=== PATIENT | female | born 1950 | race Caucasian/White ===

== ENCOUNTER 2020-04-10 11:45 | Outpatient (NON) | payer MEDICARE, SELFPAY ==
[2020-04-11 01:18] LABS: SARS-CoV-2 RNA PCR Negative
== END 2020-04-10 11:46 ==
PROVIDERS: Visit Provider Internal Medicine
DX: Z20.828 Contact with and (suspected) exposure to other viral communicable diseases (principal)
CPT/HCPCS: 87635; C9803; U0003

== ENCOUNTER 2021-02-27 15:27 | Emergency (ER) | payer MEDICARE, SELFPAY ==
--- NOTE | ~2021-02-27 | XR_ITS ---
XR chest 1V portable DATE: 02/27/2021 17:14 INDICATION: Fever, shortness of breath, nausea TECHNIQUE: Portable upright AP chest on 02/27/2021 at 1708 hours COMPARISON: 02/24/2006 PA and lateral chest FINDINGS: Normal heart size. Possible coronary artery stent; recommend clinical correlation. No hilar or mediastinal enlargement. No pulmonary infiltrate or consolidation, pleural effusion or pulmonary vascular congestion or pneumo thorax. Diffuse osteopenia. Degenerative spurring and scoliosis of the thoracolumbar spine. IMPRESSION: No active cardiopulmonary disease Diffuse osteopenia Reviewed, dictated and finalized at location A.
[2021-02-27 15:28] VITALS: BP 153/71; PULSE 101; RESP 18; TEMP 38.4; O2SAT 97
--- NOTE | 2021-02-27 17:12 | PC.NURSE ---
Patient refusing all labs, urine or any testing except the COVID test. Patient reports she wants nothing more done to her other than the COVID test.
--- NOTE | 2021-02-27 17:30 | PC.NURSE ---
patient's asked to leave due to patient's getting a COVID test, patient still refusing all other testing or vital signs. patient states I want a COVID test and then I am going home, I don't feel good.
--- NOTE | 2021-02-27 17:57 | ED.URI ---
HPI - URI/Sore Throat General Chief Complaint: Headache Stated Complaint: headache, fever Time Seen by Provider: 02/27/21 16:58 Source: patient Mode of arrival: ambulatory Limitations: no limitations History of Present Illness HPI Narrative: This is a 70 year old female that presents to the ER for cold symptoms present over the last couple of days. Reports fever, sinus pain, congestion, cough and nausea. She has been Covid vaccinated with [employer] earlier this year. Denies chest pain, shortness of breath, abdominal pain, vomiting, or dysuria. Related Data Home Medications Medication Instructions Recorded Confirmed amlodipine 02/27/21 atenolol 02/27/21 atorvastatin 02/27/21 ciprofloxacin-dexamethasone drp 02/27/21 conjugated estrogens [Premarin] 02/27/21 montelukast mg 02/27/21 sertraline mg 02/27/21 02/27/21 Allergies Allergy/AdvReac Type Severity Reaction Status Date / Time codeine Allergy Intermediate VOMITTING Verified 07/28/15 08:17 aspirin AdvReac Unknown Verified 02/27/21 15:33 Review of Systems Review of Systems: CONSTITUTIONAL: Reports fever, chills ENT: Reports rhinorrhea, congestion, sore throat CARDIOVASCULAR: Denies chest pain RESPIRATORY: Denies dyspnea. GASTROINTESTINAL: Denies abdominal pain GENITOURINARY: Denies dysuria NEUROLOGIC: Reports headache. Denies numbness, or weakness. All systems reviewed & are unremarkable except as noted in HPI and below PMFSH Past Medical History Medical History (Updated 02/27/21 @ 18:04 by Beena Maldonado PA-C) History of hyperlipidemia History of hypertension Social History Social History (Updated 02/27/21 @ 18:00 by Beena Maldonado PA-C) Substance use: never Exam Narrative: GENERAL: Well-appearing, well-nourished, and in no acute distress. HEAD: Normocephalic, atraumatic. EYES: EOMI. ENT: Nares clear, no rhinorrhea or epistaxis. Mucous membranes moist. Oropharynx without tonsillar hypertrophy exudate or other lesions. Bilateral TMs pearly lieberman non-bulging. Left TM with myringotomy tube present. Tender to palpation of the maxillary sinuses bilaterally NECK: Supple. No adenopathy or masses. CHEST: Clear to auscultation. No respiratory distress. No wheezes rales or rhonchi HEART: Regular rate and rhythm. No murmur heard. Normal peripheral pulses. ABDOMEN: Soft, nontender, nondistended, normal active bowel sounds. EXTREMITIES: Normal range of motion. No edema. SKIN: Warm, dry, no rash. NEURO: No focal deficits. Alert and oriented x3. Cranial nerves II through XII grossly intact PSYCH: Normal mood and affect Course Vital Signs Vital signs: Vital Signs Temperature 101.2 F H 02/27/21 15:28 Pulse Rate 101 H 02/27/21 15:28 Respiratory Rate 18 02/27/21 15:28 Blood Pressure 153/71 H 02/27/21 15:28 Pulse Oximetry 97 02/27/21 15:28 Temperature 101.2 F H 02/27/21 15:28 Pulse Rate 101 H 02/27/21 15:28 Respiratory Rate 18 02/27/21 15:28 Blood Pressure 153/71 H 02/27/21 15:28 Pulse Oximetry 97 02/27/21 15:28 MDM - URI/Sore Throat MDM Narrative Medical decision making narrative: Patient presents to the emergency department for cold symptoms present over the last couple of days. Febrile upon arrival, she is nontoxic-appearing. She refused any antipyretics in the ED. Oxygen saturation has remained normal on room air. She denies any chest pain or shortness of breath. Chest x-ray without acute cardiopulmonary abnormality. SARS-CoV-2 was sent. She refused any further laboratory evaluation. Patient will be treated for acute bacterial sinusitis pending Covid swab. She was instructed to have close follow-up with her primary doctor. She was given warnings to return to the ER Lab Data Attestation: I reviewed the patient's lab results. Labs: Lab Results 02/27/21 Range/Units 17:13 SARS-CoV-2 RNA (RT-PCR) Pending Imaging Data Radiologist's impression: ITS Impressions Chest X-Ray
[2021-03-01 19:00] LABS: SARS-CoV-2 RNA PCR Negative
== END 2021-02-27 18:18 | disposition home or self-care (01) ==
PROVIDERS: Physician Assistant; Emergency Provider Emergency Medicine; PCP Internal Medicine
DX: J01.90 Acute sinusitis, unspecified (principal); B96.89 Other specified bacterial agents as the cause of diseases classified elsewhere; Z20.822 Contact with and (suspected) exposure to COVID-19; E78.5 Hyperlipidemia, unspecified; I10 Essential (primary) hypertension
CPT/HCPCS: 71045; 99283; C9803; U0003; U0005

== ENCOUNTER 2022-04-29 22:58 | Emergency (ER) | payer MEDICARE, SELFPAY ==
[2022-04-29 22:59] VITALS: RESP 20
[2022-04-29 23:08] VITALS: BP 129/78; PULSE 104; RESP 24; TEMP 36.7; O2SAT 100
--- NOTE | 2022-04-29 23:16 | ED.ALLEREA ---
HPI - Allergic Reaction General Chief complaint: Allergic Reaction Stated complaint: rash Time Seen by Provider: 04/29/22 23:06 History of Present Illness HPI narrative: 71-year-old female presents to the emergency room for a pruritic rash that began yesterday. Patient states that she had an undisclosed breast surgery last week, and has been using antibacterial body wash since her procedure. Patient states yesterday she began experiencing a pruritic rash on her arms and her legs. Called her PCP yesterday and was given 50 mg of Benadryl and steroid Dosepak. States she received relief for a couple of hours and then the pruritus returned. Denies any shortness of breath or difficulty breathing. Related Data Home Medications Medication Instructions Recorded Confirmed amlodipine 5 mg tablet 02/27/21 atenolol 25 mg tablet 02/27/21 atorvastatin 20 mg tablet 02/27/21 ciprofloxacin 0.3 %-dexamethasone drp 02/27/21 0.1 % ear drops,suspension conjugated estrogens 0.625 mg/gram 02/27/21 vaginal cream (Premarin) montelukast 10 mg tablet mg 02/27/21 sertraline 50 mg tablet mg 02/27/21 02/27/21 Allergies Allergy/AdvReac Type Severity Reaction Status Date / Time codeine Allergy Intermediate VOMITTING Verified 07/28/15 08:17 aspirin AdvReac Unknown Verified 02/27/21 15:33 Review of Systems Review of Systems: CONSTITUTIONAL: Denies fever, chills, or sweats. EYES: Denies visual changes, redness, or discharge. ENT: Denies rhinorrhea, congestion, sore throat, or otalgia. CARDIOVASCULAR: Denies chest pain, palpitations, or edema. RESPIRATORY: Denies cough or dyspnea. GASTROINTESTINAL: Denies abdominal pain, nausea, vomiting, or diarrhea. GENITOURINARY: Denies dysuria or hematuria. SKIN: reports rash MUSCULOSKELETAL: Denies back pain, joint pain, or myalgia. NEUROLOGIC: Denies headache, numbness, dizziness, or weakness. PSYCHIATRIC: Denies anxiety or depression. [facility] Past Medical History Medical History History of hyperlipidemia History of hypertension Social History Social History Substance use: never Exam Narrative: GENERAL: Well-appearing, well-nourished, no physical limitations, and in no acute distress. HEAD: Normocephalic, atraumatic. EYES: Conjunctivae normal, PERRLA and EOMI. CHEST: Clear to auscultation. No respiratory distress. No wheezes rales or rhonchi. HEART: Regular rate and rhythm. No murmur heard. Normal peripheral pulses. ABDOMEN: Soft, nontender, nondistended, normal active bowel sounds. EXTREMITIES: Normal range of motion. No edema. No clubbing or cyanosis SKIN: And urticaria noted to anterior bilateral thighs and posterior surfaces of bilateral forearms NEURO: No focal deficits. Alert and oriented x3. MAEW. CN's II-XI intact bilaterally, normal gait PSYCH: Cooperative. Normal mood and affect. Course Course Emergency Course: Patient was given Cymetra, Benadryl, Pepcid and IV. On reexamination, patient states that her symptoms resolved. Vital Signs Vital signs: Vital Signs Respiratory Rate 20 04/29/22 22:59 Temperature 36.7 C 04/29/22 23:08 Pulse Rate 104 H 04/29/22 23:08 Respiratory Rate 24 H 04/29/22 23:08 Blood Pressure 129/78 04/29/22 23:08 Pulse Oximetry 100 04/29/22 23:08 Discharge Plan Discharge Clinical Impression: Allergic reaction, Urticaria Patient Disposition: Home, Self-Care Condition: Stable Instructions: Antibiotic Form, Urticaria (ED), General Allergic Reaction (ED) Additional Instructions: Discontinue your steroid Dosepak. Begin taking the prednisone 40 mg every morning for the next 5 days. Also recommend taking a daily Pepcid. Prescriptions: New prednisone 20 mg tablet 40 mg PO DAILY 5 Days Qty: 10 0RF No Action atorvastatin 20 mg tablet atenolol 25 mg tablet amlod
[2022-04-29] MEDS: SODIUM CHLORIDE 0.9% IV 1,000 ML 999 ML IV CONT (23:46)
[2022-04-29] MEDS: methylPREDNISolone SOD SUCC 125 MG VIAL IV PUSH (23:47)
[2022-04-29] MEDS: FAMOTIDINE 20 MG/2 ML VIAL IV PUSH (23:47)
[2022-04-29] MEDS: diphenhydrAMINE HCl INJ 50 MG/ML VIAL 25 MG IV PUSH (23:48)
== END 2022-04-30 01:02 | disposition home or self-care (01) ==
PROVIDERS: Emergency Provider Nurse Practitioner Family; PCP Internal Medicine
DX: L50.0 Allergic urticaria (principal); E78.5 Hyperlipidemia, unspecified; I10 Essential (primary) hypertension
CPT/HCPCS: 96361; 96374; 96375; 99284; J1200; J2930; J7030

== ENCOUNTER 2022-05-01 12:27 | Emergency (ER) | payer MEDICARE, SELFPAY ==
[2022-05-01 13:13] VITALS: BP 143/69; PULSE 77; RESP 16; TEMP 36.8; O2SAT 99
--- NOTE | 2022-05-01 13:44 | ED.GENADULT ---
HPI - General Adult General Chief complaint: Skin/Abscess/Foreign Body Stated complaint: rash Source: patient Mode of arrival: ambulatory Limitations: no limitations History of Present Illness HPI narrative: Patient presents for evaluation of pruritic rash. She indicates she had breast reduction surgery on 04/13/2022. She used a surgical prep skin washed for a few days prior to the procedure in for 6 days thereafter. She had some mild pruritus while using the product but states that significantly worsened at the end of her course of use. She states she went to [facility] Emergency Department 2 days ago due to the severity of her symptoms. She states she was given intravenous steroids and Benadryl. She states that she was given a prescription for 40 mg of prednisone to take orally daily. she indicates that the medication tore (her) stomach up . She tried taking it again today despite her GI upset due to the severity of her symptoms. She states that the steroids and benadryl are not offering her much in the way of relief. She denies any difficulty breathing or swallowing. She tried taking a cool shower but states that it is challenging during the colder weather. Her family member states that another family member inquired whether she could use kenalog cream or fluorouracil for her symptoms. No other new medications. No new foods. She is wondering whether her symptoms could be related to the anesthesia she received for her 04/13/22 surgery. She is under the care of an fire prevention bureau captain. She takes zyrtec at home on a regular basis. She has been watching her child's dog for several weeks. She states she does has not had an allergic response historically when in contact with the dog for a period of a few days but believes she will no longer be able to be in contact with the dog for longer periods of time. Related Data Home Medications Medication Instructions Recorded Confirmed amlodipine 5 mg tablet 02/27/21 atenolol 25 mg tablet 02/27/21 atorvastatin 20 mg tablet 02/27/21 ciprofloxacin 0.3 %-dexamethasone drp 02/27/21 0.1 % ear drops,suspension conjugated estrogens 0.625 mg/gram 02/27/21 vaginal cream (Premarin) montelukast 10 mg tablet mg 02/27/21 sertraline 50 mg tablet mg 02/27/21 02/27/21 Allergies Allergy/AdvReac Type Severity Reaction Status Date / Time codeine Allergy Intermediate VOMITTING Verified 07/28/15 08:17 aspirin AdvReac Unknown Verified 02/27/21 15:33 Review of Systems Review of Systems: CONSTITUTIONAL: Denies fever, chills, or sweats. EYES: Denies visual changes, redness, or discharge. ENT: Denies rhinorrhea, congestion, sore throat, or otalgia. CARDIOVASCULAR: Denies chest pain, palpitations, or edema. RESPIRATORY: Denies cough or dyspnea. GASTROINTESTINAL: Denies abdominal pain, nausea, vomiting, or diarrhea. GENITOURINARY: Denies dysuria or hematuria. SKIN: Reports pruritic rash to torso and extremities x 4. MUSCULOSKELETAL: Denies back pain, joint pain, or myalgia. NEUROLOGIC: Denies headache, numbness, dizziness, or weakness. PSYCHIATRIC: Denies anxiety or depression. [facility] Past Medical History Medical History (Updated 05/01/22 @ 13:51 by Syd Reeves, LULI, ) History of hyperlipidemia History of hypertension Surgical History Surgical History Status post breast reduction Family History Family History Mother Family history non-contributory Social History Social History Substance use: never Gender identity (if verbalized by the patient): Female Sexual Orientation (if Verbalized by the Patient): Straight or Heterosexual Spiritual care concerns: No Exam Narrative: GENERAL: Well-appearing, well-nourished, and in no acute distress. HEAD: Normocephalic, atraumatic. EYES: PERR
[2022-05-01] MEDS: methylPREDNISolone SOD SUCC 125 MG VIAL IM (13:51)
== END 2022-05-01 14:09 | disposition home or self-care (01) ==
PROVIDERS: Emergency Provider Nurse Practitioner; PCP Internal Medicine
DX: R21 Rash and other nonspecific skin eruption (principal); T78.40XA Allergy, unspecified, initial encounter; E78.5 Hyperlipidemia, unspecified; I10 Essential (primary) hypertension
CPT/HCPCS: 96372; 99213; G0463; J2930

== ENCOUNTER 2024-10-08 11:05 | Outpatient (CLI) | payer MEDICARE, SELFPAY ==
--- NOTE | ~2024-10-08 | US_ITS ---
Limited Abdominal Sonogram: Real-time sonographic imaging of the right upper quadrant was performed. Clinical History: Acute abdominal pain Findings: The liver appears normal with no evidence of mass lesion or bile duct dilatation. Main por ravindra vein demonstrates normal direction of flow. The gallbladder is well distended, and appears normal with no evidence of gallstone or wall thickening. The common bile duct measures 3 mm. The visualize d pancreas, aorta, and IVC are unremarkable. Impression: No significant abnormality seen. Reviewed, dictated and finalized at location . Impression: No significant abnormality seen.
== END 2024-10-08 11:06 | disposition home or self-care (01) ==
LOC: GOSHIMG 11:06
PROVIDERS: PCP Internal Medicine; Visit Provider Internal Medicine
DX: R10.9 Unspecified abdominal pain (principal)
CPT/HCPCS: 76705

== ENCOUNTER 2025-04-09 10:13 | Outpatient (CLI) | payer MEDICARE, SELFPAY ==
--- OUTSIDE RECORDS SUMMARY | 2024-12-20 04:20 | XMS_ITS ---
Author Organization [employer] Address [address] [place] [address] [address] [place] [address] Care Team Providers Care Scoop Operator Name Role Phone Shawn SALAS, Martinez Primary Care Provider Eliel Fernandes MD, [facility] Unavailable Unavailable Shine Borjas Unavailable [phone] REASON FOR VISIT Establish care with VIV; pain localized to the right side, accompanied by nausea Encounters Encounter Location Date Provider Diagnosis [facility], [address] [place] [address] 12/20/2024 Shine Borjas Plan Of Treatment No Information Progress Notes * Rusty MEDEROS MDOB: (74 yo F)Acc No.[id number]:12/20/2024 Patient: Radha HILLJESUSALESSIORusty Pino Provider: Radha Borjas M.D. :1950 A ge:74 Y S ex:Female Date:12/20/2024 Address:[address] [place] [address], [facility] Pcp:Martinez Escobar MD Subjective: * Chief Complaints: * 1 . Establish care with VIV; pain localized to the right side, accompanied by nausea. * Medical History: Objective: * Vitals: Assessment: Plan: * Treatment: * * Electronic signature of Gustavo Borjas MD on 04/09/2025 at 11:49 AM NECK BAND OPERATOR Sign off status: Pending * Provider: Radha Borjas M.D. Date: 0 12/20/2024 Generated for Tyra wolfe/Emmie/Tiny on: 1 06/10/2024 11:49 AM NECK BAND OPERATOR
--- NOTE | ~2025-04-09 | DEXA_ITS ---
Bone Density Report Name: CINDI MEDEROS Age: 74 Sex: Female Ethnicity: White Date of : 1950 Indication: postmenopausal; screening for osteoporosis; height loss; Referring Provider: MENG, BRIGHT Engel Study: Bone densitometry was performed. Exam Date: April 09, 2025 Accession number: [id number] Bone Density: Region BMD T-score Z-score Classification AP Spine(L1-L4) 0.796 -2.3 0.1 Osteopenia Femoral Neck (Left) 0.609 -2.2 -0.1 Osteopenia Total Hip (Left) 0.674 -2.2 -0.4 Osteopenia Femoral Neck (Right) 0.556 -2.6 -0.6 Osteoporosis Total Hip (Right) 0.683 -2.1 -0.4 Osteopenia Total Hip Mean 0.679 -2.2 -0.4 Osteopenia World Health Organization criteria for BMD impression classify patients as: Normal (T-score at or above -1.0), Osteopenia (T-score between -1.0 and -2.5), or Osteoporosis (T-score at or below -2.5). 10-year Fracture Risk: FRAX not reported because: Some T-score for Spine Total or Hip Total or Femoral Neck at or below -2.5 Clinical Information Provided by Patient: Has used the following medications: Vitamin D Patient maximum height was 63.0 Menopause Age: 50 Drinks caffeinated beverages Onset of menses at age 12 Number of children 3 Impression: The patient has osteoporosis, based on the Right Femoral Neck T-score. Discussion: INCREASED RISK OF FRACTURE. BONE DENSITY IS UNDESIRABLY LOW AT ONE OR MORE SKELETAL SITES, CONSISTENT WITH POSTMENOPAUSAL OSTEOPOROSIS. This patient's lowest T-score meets the World Health Organization's (WHO) criteria for osteoporosis at one or more sites (T-score -2.5 or below). In untreated patients, the risk of osteoporotic fracture increases approximately two-fold for each 1.0 SD decrease in T-score. Low bone density is not the only risk factor for fracture; also consider factors such as patient's age, frailty or poor health, risk of falling, risk of injury, previous osteoporotic fracture, family history of osteoporosis, cigarette smoking, low body weight, etc. Not everyone with low bone mineral density has osteoporosis; osteomalacia and other metabolic bone disorders should also be considered. Patients who have osteoporosis should be evaluated for specific diseases and conditions (secondary causes) that may cause or contribute to bone loss. The [place] Association of Clinical Endocrinologists (AACE) and National Osteoporosis Foundation (NOF) recommend pharmacologic intervention for all postmenopausal women whose T-score is in this range. The patient should follow a healthful lifestyle (good nutrition with adequate calcium and vitamin D, and appropriate weight-bearing exercise). Follow-Up: Consider a repeat BMD and Vertebral Fracture Assessment (VFA) exam in 2 years or sooner if medically necessary, to reassess this patient's status. Reported by: PHUONG on 04/09/2025 10:57:00 AM. Reviewed, dictated and finalized at location A.
--- OUTSIDE RECORDS SUMMARY | 2025-04-09 11:49 | XMS_ITS | Clinical Summary ---
Author Organization [facility] Address [address] [place] [address] Care Team Providers Care Pharmacy Assistant Name Role Phone Unavailable Primary Care Provider Unavailabl e Social History Tobacco Use Types Packs/Day Years Used Date Smoking Tobacco: Never Assessed Comments Unknown Sex and Gender Information Value Date Recorded Sex Assigned at Not on file Legal Sex Female 1:18 AM PST Gender Identity Not on file Sexual Orientation Not on file Plan of Treatment Not on file
--- OUTSIDE RECORDS SUMMARY | 2025-04-09 11:49 | XMS_ITS | Encounter Summary ---
Author Organization [facility] Address [address] [place] [address] Care Team Providers Care Medical Concierge Name Role Phone Unavailable Primary Care Provider Unavailabl e Prior Encounters Date Type Department Care Team Description 05/13/2019 Converted CPS Chart Documents [facility] [address] [place] [address] <No scans attached> 05/13/2019 Converted 13x Documents [facility] [address] [place] [id number] <No scans attached> Plan of Treatment Not on file Procedures Procedure Name Priority Date/Time Associated Diagnosis Comments 10 RECEMENT VENEER Routine 12/05/2017 2: 00 AM CDT 10 LIMITED ORAL EVALUATION - PROBLEM FOCUSED Routine 12/05/2017 2:00 AM CDT REMOVABLE ORTHODONTIC RETAINER ADJUSTMENT Routine 06/22/2017 2:00 AM DIRECTOR DIGITAL ANALYTICS OCCLUSAL GUARD DELIVERY Routine 06/01/19 18 2:00 AM DIRECTOR DIGITAL ANALYTICS NC X-RAY Routine 06/01/2017 2:00 AM DIRECTOR DIGITAL ANALYTICS OCCLUSAL GUARD SOFT APPLIANCE, FULL ARCH Routine 04/28/2017 2:00 AM DIRECTOR DIGITAL ANALYTICS NC X-RAY Routine 04/28/2017 2:00 AM DIRECTOR DIGITAL ANALYTICS OFFICE VISIT FOR OBSERVATION (DURING REGULARLY SCHEDULED HOURS) - NO OTHER SERVICES PERFORMED Routine 04/12/2017 2:00 AM DIRECTOR DIGITAL ANALYTICS 11 CEREC VENEER Routine 04/08/2017 2:00 AM DIRECTOR DIGITAL ANALYTICS 10 CEREC VENEER Routine 04/08/2017 2:00 AM DIRECTOR DIGITAL ANALYTICS 9 CEREC VENEER Routine 04/08/2017 2:00 AM DIRECTOR DIGITAL ANALYTICS 8 CEREC VENEER Routine 04/08/2017 2:00 AM DIRECTOR DIGITAL ANALYTICS 7 CEREC VENEER Routine 04/08/2017 2:00 AM DIRECTOR DIGITAL ANALYTICS 6 CEREC VENEER Routine 04/08/2017 2:00 AM DIRECTOR DIGITAL ANALYTICS 24 DIF COMPOSITE FILLING Routine 017 2:00 AM DIRECTOR DIGITAL ANALYTICS 23 MIF COMPOSITE FILLING Routine 017 2:00 AM DIRECTOR DIGITAL ANALYTICS FM BLEACH IN-OFFICE Routine 04/04/2017 2 :00 AM DIRECTOR DIGITAL ANALYTICS INTRAORAL - COMPREHENSIVE SERIES OF RADIOGRAPHIC IMAGES Routine 03/23/2017 2:00 AM DIRECTOR DIGITAL ANALYTICS INTRAORAL PHOTO Routine 03/23/2017 2:00 AM DIRECTOR DIGITAL ANALYTICS INTRAORAL PHOTO Routine 03/23/2017 2:00 AM DIRECTOR DIGITAL ANALYTICS INTRAORAL PHOTO Routine 03/23/2017 2:00 AM DIRECTOR DIGITAL ANALYTICS INTRAORAL PHOTO Routine 03/23/2017 2:00 AM DIRECTOR DIGITAL ANALYTICS 11 BIO-TEMP Routine 03/22/2017 2:00 AM DIRECTOR DIGITAL ANALYTICS 10 BIO-TEMP Routine 03/22/2017 2:00 AM DIRECTOR DIGITAL ANALYTICS 9 BIO-TEMP Routine 03/22/2017 2:00 AM DIRECTOR DIGITAL ANALYTICS 8 BIO-TEMP Routine 03/22/2017 2:00 AM DIRECTOR DIGITAL ANALYTICS 7 BIO-TEMP Routine 03/22/2017 2:00 AM DIRECTOR DIGITAL ANALYTICS 6 BIO-TEMP Routine 03/22/2017 2:00 AM DIRECTOR DIGITAL ANALYTICS 6 LIMITED ORAL EVALUATION - PROBLEM FOCUSED Routine 03/22/2017 2:00 AM DIRECTOR DIGITAL ANALYTICS Visit Diagnoses Not on file
--- OUTSIDE RECORDS SUMMARY | 2025-04-09 11:50 | XMS_ITS | Clinical Summary ---
Author Organization [facility] Address [address] [place] [address] Care Team Providers Care Cardiovascular Rn Name Role Phone Martinez Escobar MD Primary Care Provider [phone] Source Comments [facility],non-owned Affiliates and Associated Physician Practices is amultiple site organization consisting of ambulatory clinics and hospital sitesin [place], [place], [place] and [place]. This disclosure is being madepursuant to the Care Everywhere program and may not contain all information available regarding this patient. Last updated 18.[facility] Allergies Active Allergy Reactions Criticality Noted Date Comments Codeine 01/06/2009 Medications * Be aware that medications may not be up to date on this document. Alwaysverify current medications with the patient. atenolol (TENORMIN) 25 MG tablet Take 12.5 mg by mouth daily. Active amlodipine (NORVASC) 5 MG tablet Take 5 mg by mouth daily. Active atorvastatin (LIPITOR) 10 MG tablet Take 10 mg by mouth at bedtime. Active multivitamin daily tablet Take 1 Tab by mouth daily. Active calcium-vitamin D (OS-SHANNON 250 PLUS D) 250-125 MG-UNIT tablet Take 1 Tab by mouth daily. Active esomeprazole (NEXIUM) 40 MG capsule Take 1 Cap by mouth daily before breakfast. 30 3 01/07/2009 Active sertraline (ZOLOFT) 50 MG tablet Take 1 tablet by mouth 04/12/2016 Active diphenhydrAMINE (BENADRYL) 25 MG tablet Take 25 mg by mouth Active loratadine (CLARITIN) 10 MG tablet Take 10 mg by mouth Active cetirizine (ZYRTEC) 10 MG tablet Take 10 mg by mouth Active azelastine-flut icasone (DYMISTA) 137-50 MCG/ACT nasal spray [place] 1 spray into the nose 07/07/2016 Active ipratropium (ATROVENT) 0.03 % nasal spray USE 2 SPRAYS IN NOSE THREE TIMES DAILY. MAY TAKE 15 MINUTES BEFORE EATING 05/29/2017 Active Active Problems Problem Noted Date Diagnosed Date Abdominal pain 01/07/2009 Overview (01/22/2015): Chest pain 01/07/2009 Syncope and collapse 01/06/2009 Social History Tobacco Use Types Packs/Day Years Used Date Smoking Tobacco: Never Assessed Comments Unknown Sex and Gender Information Value Date Recorded Sex Assigned at Not on file Legal Sex Female 6:03 AM RN GYNECOLOGY Gender Identity Not on file Sexual Orientation Not on file Last Filed Vital Signs Vital Sign Reading Time Taken Comments Blood Pressure 123/71 01/07/2009 12:00 PM CDT Pulse 71 01/07/2009 12:00 PM CDT Temperature 37.3 C (99.2 F) 01/07/2009 12:00 PM CDT Respiratory Rate 20 01/07/2009 12:00 PM CDT Oxygen Saturation 98% 01/07/2009 12:00 PM CDT Inhaled Oxygen Concentration - - Weight 65.4 kg (144 lb 2.9 oz) 01/07/2009 1:24 A M CDT Height 160.5 cm (5' 3.19) 01/07/2009 1:24 AM CD T Body Mass Index 25.39 01/07/2009 1:24 AM CDT Plan of Treatment Health Maintenance Due Date Last Done Comments BONE DENSITY TESTING 1950 COLOGUARD (AGES 45-75) - COL ON CA SCREENING 1950 COLON MONITORING 1950 COLONOSCOPY - COLON CA SCREENING 1950 CT COLONOGRAPHY - COLON CA SCREENING 1950 Colorectal Cancer Screening 1950 FIT - COLON CA SCREENING 1950 FLEX SIG - COLON CA SCREENING 1950 MAMMOGRAM 1950 HEPATITIS C SCREENING 08/14/1968 DTAP/TDAP/TD VACCINES (1 - Tdap) 1969 PNEUMOCOCCAL VACCINE 50+ (1 of 1 - PCV) 2000 ZOSTER VACCINE (1 of 2) 2000 DEPRESSION SCREENING 04/24/2024 COVID-19 VACCINE (1 - 2024-2 6 season) 2024 INFLUENZA VACCINE (#1) 2024 Respiratory Syncytial Virus (RSV) Vaccine Pt: or over 60 yrs (1 - 1-dose 75+ series) 2025 HEPATITIS B VACCINE Aged Out No longe r eligible based on patient's age to complete this topic HIB VACCINE Aged Out No longer eligi ble based on patient's age to complete this topic HPV VACCINE Aged Out No longer eligi ble based on patient's age to complete this topic MENINGOCOCCAL (Group B) VACC INE SHARED DECISION-MAKING Aged Out No longer eligibl e based on patient's age to complete this topic MENINGOCOCCAL GROUPS A/C/Y/W VACCINE Aged Out No longer eligible b ased on patient's age to complete this topic Insurance [facility] MANAGED MEDICARE ADV Care Teams Cardiovascular Rn Relationship Specialty Start Date End Date Martinez Escobar MD [address] [place] [address] [address] [place] [address] PCP - General 01/07/09
--- OUTSIDE RECORDS SUMMARY | 2025-04-09 11:50 | XMS_ITS | Patient Health Record ---
Author Organization [facility] Address [address] [facility] [address] [place] [address] Care Team Providers Care Hospital Attendant Name Role Phone Martinez Escobar MD Primary Care Provider Eliel Fernandes MD, Janet Unavailable Unavailable BorjasShine ramirez Unavailable [phone] Sushila Lazcano Unavailable [phone] Daya Carvajal Unavailable [phone] Allergies Allergen (clinical drug ingredient) Drug/Non Drug Allergy documented on EMR Reaction Allergy Type Onset Date Status codeine Codeine Sulfate Unknown Drug Allergy A ctive aspirin Aspirin Unknown Drug Allergy Active Reason For Referral No Information Medications Medication SIG (Take, Route, Frequency, Duration) Notes Start Date End Date Status OTC/Vitamins Singulair, Viatm in D3, Centrum, Zyrtec, Vit K2, Eye vitamin Active Lipitor Active Zoloft Active Famotidine 20 MG 1 tablet at bedtime as needed Orally Once a day; Duration: 90 days 12/29/2021 Active Atenolol Active Norvasc Active Social History Tobacco Use: Social History Observation Description Date Details (start date - stop date) Former Smoker NA - NA Tobacco Use/Smoking Question Answer Notes Are you a former smoker How long has it been since you last smoked? 1-5 years Section Notes: She is . She has 3 ch ildren. 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 She lives in [place] with her . She is . She has 3 ch ildren. 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 She lives in [place] with her . She is . She has 3 ch ildren. 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 She lives in [facility] with her . Problems Problem Type SNOMED Code ICD Code Onset Dates Problem Status W/U Status Risk Notes Problem Adenoma of transverse colon (616423119) Adenoma of transverse colon (D12.3) Active confirmed Problem History of polyp of colon (situation) (899299069) History of colon polyps (Z86.010) Active confirmed Or alarm symptoms but there has been alternating constipation and diarrhea recently but has actually improved somewhat. Problem Diverticular disease of colon (867634716) Colon, diverticulosis (K57.30) Active confirmed No evidence of diverticulitis. She is at known diverticulosis from previous examination. Problem Epigastric pain (55270374) Abdominal pain, epigastric (R10.13) Active confirmed Problem Right lower quadrant pain (602909542) Right lower quadrant abdominal pain (R10.31) Active confirmed Suspect this may be an abdominal strain injury. Given her recent colonoscopy, CT scan, lack of alarm features would favor a conservative course. Problem History of Helicobacter pylori infection (7686916457319 9108) History of Helicobacter pylori infection (Z86.19) Active confirmed Remote history of H. pylori infection and apparently she had taken antibiotics for treatment. She would like to know if indeed she had successfully eradicated for H. pylori. Stool test was also offered to her but she has declined that at the present time. She also informed me that there was an ulcer in the past and she would like to check as well. After discomfort recently but that has also been improving slowly. Encounters Encounter Location Date Provider Diagnosis [facility], [facility] [address] [facility] [place] [address] 10/16/2024 Daya Carvajal [facility], [facility] [address] [facility] [place] [address] 10/17/2024 Sushila Lazcano Plan Of Treatment No Information Insurance Providers Payer Name Payer Address Payer Phone Subscriber Number Group Number Insured Name Patient Relationship to Insured Coverage Start Date Coverage End Date [employer] Open Choice Ppo [id number] [address] [place] [phone] [id number] Rusty Abarca Self - patient is the insured Medical (General) History Medical History History ICD Code Helicobacter Pylori Diverticulitis Colon Polyps Hypertension Migraines MVP Anxiety Hypercholesterolemia Hearing Loss Samter's Syndrome Surgical History Surgery Date(Month/Year) Colonoscopy 11/2021 EGD 11/2021 x3 Sinus surgery x2 Auxillary lipoma
--- OUTSIDE RECORDS SUMMARY | 2025-04-09 11:50 | XMS_ITS | Clinical Summary ---
Author Organization [facility] Address [address] [place] [address] [facility] [address] Care Team Providers Care Aerospace Stress Engineer Name Role Phone Martinez Escobar MD Primary Care Provider Allergies Active Allergy Reactions Criticality Noted Date Comments Aspirin Other (See comments),Angioedema High 01/10/2018 other Congestion polyps Codeine Nausea & Vomiting Low 01/06/2009 Medications montelukast (SINGULAIR) 10 mg tablet TK 1 T PO HS 6 04/05/20 18 Active PREMARIN vaginal cream I 1/2 APL VAGINALLY Q 72 H 6 05/09/19 19 Active cetirizine (ZyrTEC) 10 mg tablet Take 1 tablet (10 mg total) by mouth Active sertraline (ZOLOFT) 50 mg tablet Take 1 tablet (50 mg total) by mouth daily 90 tablet 1 09/06/19 19 Active amLODIPine (NORVASC) 5 mg tablet TAKE 1 TABLET(5 MG) BY MOUTH DAILY 90 tablet 3 02/13/20 19 Active budesonide (PULMICORT) 0.5 mg/2 mL nebulizer solution OPEN CAPSULE AND MIX WITH 1 PREMIXED SALINE PACKET IN 240ML DISTILLED WATER. IRRIGATE EACH NOSTRIL WITH 120ML MEDICATED SALINE TWICE DAILY 11 04/08/20 19 Active atenoloL (TENORMIN) 25 mg tablet TAKE 1 TABLET(25 MG) BY MOUTH DAILY 90 tablet 1 07/05/19 20 Active cholecalciferol (VITAMIN D-3) 5,000 unit tablet Vitamin D3 125 mcg (5,000 unit) tablet Take 1 tablet every day by oral route. 05/14/19 20 Active EPINEPHrine 0.3 mg/0.3 mL auto-injection syringe epinephrine 0.3 mg/0.3 mL injection, auto-injector INJECT INTRAMUSCULARLY DIRECTED Active VITAMIN K2 ORAL Take by mouth Active antiox #8/om3/dha/epa/jose t/zeax (PRESERVISION AREDS 2, OMEGA-3, ORAL) Take by mouth Active multivitamin tabletIndications :Vitamin Deficiency Prevention Take 1 tablet by mouth Active atorvastatin (LIPITOR) 20 mg tabletIndications :Coronary artery calcification,Mix ed hyperlipidemia Take 1 tablet (20 mg total) by mouth daily 90 tablet 1 06/12/19 25 026 Active Additional Information Patient taking differently: 10 mgoral Daily, Reported on 09/30/2024 Active Problems Problem Noted Date Diagnosed Date Essential hypertension 03/11/2021 Coronary artery calcification 03/11/2021 Mixed hyperlipidemia 03/11/2021 Mixed conductive and sensorineural hearing loss, bilateral 06/29/2018 Right otitis externa 06/29/2018 Nasal polyp 03/12/2013 Dysfunction of eustachian tube 01/10/2013 Assessment & Plan (06/17/2019 2:14 PM SPECIAL EDUCATION AIDE): Left ear tube in place and functioning well although she reports hearing still not at baseline. RTC 3 mos with audio. Assessment & Plan (04/30/2019 2:33 PM SPECIAL EDUCATION AIDE): Right TM retraction pocket stable. Left ear tube placed- thick mucoid fluid. RTC one year. Assessment & Plan (12/25/2018 1:09 PM CDT): Right TM retraction pocket clear today- needs monitoring. RTC 1 year. 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 Pain in ear 08/14/2012 Otitis media 08/14/2012 Shortness of breath 05/04/2011 Mitral valve prolapse 05/04/2011 Palpitations 05/04/2011 Surgical History Surgery Date Site/Laterality Comments SINUS SURGERY SECTION LIPOSUCTION EYE SURGERY TISSUE SUB MASTER REMOVAL Medical History Medical History Date Comments HTN (hypertension) Asthma Allergic rhinitis Cataract Sinusitis Ear problems HL (hearing loss) Family History Medical History Relation Name Comments Hypertension Mother Hypertension Sister Relation Name Status Comments Mother Sister Social History Tobacco Use Types Packs/Day Years Used Date Smoking Tobacco: Former Cigarettes Q uit: 2014 Passive Smoke Exposure: Never Smokeless Tobacco: Never Tobacco Cessation:Counseling Given: Not Answered Alcohol Use Standard Drinks/Week Comments Not Currently 0 (1 standard drink = 0.6 oz pur e alcohol) AUDIT-C Answer Date Recorded Q1: How often do you have a drink containing alc ohol? Monthly or less 01/10/2023 Average Number of Drinks Not on file 023 Q3: How often do you have si x or more drinks on one occasion? Never 01/10/2023 Comments Unknown Sex and Gender Information Value Date Recorded Sex Assigned at Not on file Legal Sex Female 8:12 PM SPECIAL EDUCATION AIDE Gender Identity Not on file Sexual Orientation Not on file Last Filed Vital Signs Vital Sign Reading Time Taken Comments Blood Pressure 138/78 09/30/2024 8:36 AM CDT Pulse 70 09/30/2024 8:36 AM CDT Temperature 36.9 C (98.5 F) 08/16/2024 2:00 PM CDT Respiratory Rate 20 08/16/2024 2:00 PM CDT Oxygen Saturation 95% 09/30/2024 8:36 AM CDT Inhaled Oxygen Concentration - - Weight 69.4 kg (153 lb) 09/30/2024 8:36 AM CDT Height 158.8 cm (5' 2.5) 09/30/2024 8:36 AM CDT Body Mass Index 27.54 09/30/2024 8:36 AM CDT Plan of Treatment Health Maintenance Due Date Last Done Comments Colon Cancer Screening-Colonoscopy 1950 Depression Screening 1950 Fall Risk Assessment 1950 Hepatitis C Screening 1950 Hepatitis B Screening 1968 Pneumococcal vaccine 65+ (1 of 2 - PCV) 1969 Zoster Vaccine (1 of 2) 2000 Osteoporosis Screening-Bone Density Scan 07/09/2015 07/08/2013, 07/08/2013, 03/03/2011 Well Visit 65+ 08/20/2015 DTaP/Tdap/Td Vaccine (2 - Td or Tdap) 08/03/2024 08/03/2014 Influenza Vaccine (#1) 2024 Breast Cancer Screening-Mammogram 03/28/2025 03/28/2024, 03/28/2024, 02/24/2023, Additional history exists Insurance [facility] MEDICARE [facility] MEDICARE ADVANTAGE [facility] MEDICARE AET[employer] MEDICARE Care Teams Aerospace Stress Engineer Relationship Specialty Start Date End Date Martinez Escobar MD PCP - General 06/30/17
--- OUTSIDE RECORDS SUMMARY | 2025-04-09 11:50 | XMS_ITS | Clinical Summary ---
Author Organization [facility] Address [address] [place] [address] Care Team Providers Care Band Attacher Name Role Phone Martinez Escobar MD Primary Care Provider [phone] Allergies Active Allergy Reactions Criticality Noted Date Comments Aspirin Other (See Comments) 01/10/2018 Congestion polyps Very severe Codeine Nausea and Vomiting Low 01/06/2009 Medications amLODIPine (NORVASC) 5 mg tablet Take 5 mg by mouth daily. Active atorvastatin (LIPITOR) 10 mg tablet Take 10 mg by mouth daily. Active ergocalciferol (VITAMIN D2) 50,000 unit capsule Take 50,000 Units by mouth. Active sertraline (ZOLOFT) 50 mg tablet Take 50 mg by mouth daily. Active CETIRIZINE HCL (ZYRTEC ORAL) Take by mouth daily at bedtime. Active montelukast (SINGULAIR) 10 mg tablet Take 10 mg by mouth daily. 3 9 Active atenoloL (TENORMIN) 25 mg tablet Take 25 mg by mouth daily at bedtime. 0 Active cholecalcifero l, vitamin D3, 5,000 unit every 24 hours. Act darinel Premarin 0.625 mg/gram vaginal cream INSERT 0.5 APPLICATORFUL VAGINALLY Q 72 HOURS 0 Active VITAMIN K2 ORAL Take by mouth. Activ e vit A/vit C/vit E/zinc/copper (PRESERVISION AREDS ORAL) Take by mouth. Taking 2 tables daily Active multivit-min/F A/lycopen/lute in (COMPLETE 50 PLUS ORAL) Take by mouth. A ctive HYDROcodone-ac etaminophen (NORCO) 5-325 mg tabletIndicati ons:Macromasti a Take 1 Tablet by mouth every 4 hours as needed for Pain, Severe. Max Daily Amount: 6 Tablets 8 Tablet 04/14/2022 8:52 AM CHAR HOUSE SUPERVISOR Active Additional Information Patient not taking.Reported on 03/28/2024 Active Problems Patient Care Coordination No te Formatting of this note migh t be different from the original. Primary Care: Martinez Escobar MD Referring Provider: Martinez Escobar MD [address] [facility] [address] [place] [address] Other: Dr Ksenia Tejeda Problem Noted Date Diagnosed Date Macromastia 04/13/2022 Mass of right axilla 12/29/2016 Visit for screening mammogram 11/24/2015 Arthritis MVP (mitral valve prolapse) Stress Pneumonia Hypoglycemia Encounters Date Type Department Care Team Description 03/19/[address] [facility] [address] [place] [address] Mor Blandon MD Breast cancer screening by mammogram (Primary Dx) 02/12/2025 External Device Data STL ABSTRACTION Provider, Abstract 02/11/2025 External Device Data ST[facility] ABSTRACTION Provider, Abstract 01/14/2025 External Device Data ST[facility] ABSTRACTION Provider, Abstract from Last 3 Months Family History Medical History Relation Name Comments Breast Cancer Neg Hx Cancer Neg Hx Healthy Neg Hx Ovarian Cancer Neg Hx Uterine Cancer Neg Hx Social History Tobacco Use Types Packs/Day Years Used Date Smoking Tobacco: Former Cigarettes 0 Q uit: 04/24/1984 Smokeless Tobacco: Never Tobacco Cessation:Counseling Given: Yes Alcohol Use Standard Drinks/Week Comments Yes 0 (1 standard drink = 0.6 oz pur e alcohol) rare Comments No Sex and Gender Information Value Date Recorded Sex Assigned at Not on file Legal Sex Female 5:39 AM CHAR HOUSE SUPERVISOR Gender Identity Not on file Sexual Orientation Not on file Occupation Industry Job Start Date Job End Date Not on file Not on file Not on file Not on file Not on file Not on file Not on file Not on file Last Filed Vital Signs Vital Sign Reading Time Taken Comments Blood Pressure 145/86 06/13/2022 11:08 AM CHAR HOUSE SUPERVISOR Pulse 90 04/14/2022 8:10 AM CHAR HOUSE SUPERVISOR Temperature 37.1 C (98.7 F) 04/14/2022 8:10 AM CHAR HOUSE SUPERVISOR Respiratory Rate 18 04/14/2022 4:49 AM CHAR HOUSE SUPERVISOR Oxygen Saturation 96% 04/14/2022 8:10 AM CHAR HOUSE SUPERVISOR Inhaled Oxygen Concentration - - Weight 70.8 kg (156 lb) 06/13/2022 11:06 AM CHAR HOUSE SUPERVISOR Height 158.8 cm (5' 2.5) 06/13/2022 11:06 AM CS T Body Mass Index 28.08 06/13/2022 11:06 AM CHAR HOUSE SUPERVISOR Plan of Treatment Upcoming Encounters Date Type Department Care Team (Late st Contact Info) Description 04/21/2025 9:20 AM CHAR HOUSE SUPERVISOR Appointment [facility] [facility] [address] [place] [address] Mor Blandon MD [address] [address] Health Maintenance Due Date Last Done Comments DTAP/TDAP/TD VACCINES (1 - Tdap) 1969 PNEUMOCOCCAL VACCINE 50+ YEA RS (1 of 2 - PCV) 1969 COLORECTAL SCREENING 08/20/1995 Colorectal Cancer Screening 08/20/1995 FIT-DNA Q 3 years 08/20/1995 FIT/FOBT Q 1 year 08/20/1995 Flex Sig/CT Colonography Q 5 years 08/20/1995 RSV VACCINE (60+ or ) (1 - Risk 50-74 years 1-dose series) 2000 ZOSTER VACCINE (1 of 2) 2000 OSTEOPOROSIS SCREENING 07/08/2018 4, 03/03/2011, 06/18/2009 INFLUENZA VACCINE (#1) 2024 BREAST CANCER SCREENING 03/28/2025 03/28/20 24, 02/24/2023, 01/27/2022, Additional history exists Procedures Procedure Name Priority Date/Time Associated Diagnosis Comments MAMMO 3D DEVON SCREEN BILAT W OR WO CAD Routine 03/28/2024 11:13 AM CHAR HOUSE SUPERVISOR Encounter for mammogram to establish baseline mammogram XR DEXA BONE DENSITY AXIAL 1 OR MORE SITES Routine 07/08/2013 10:28 AM CDT Special screening for osteoporosis from Last 3 Months or Most Recently Relevant to Health Maintenance Results * MAMMO 3D DEVON SCREEN BILAT W OR WO CAD (03/28/2024 11:13 AM CHAR HOUSE SUPERVISOR) Anatomical Region Laterality Modality Breast Bilateral Mammography 03/28/2024 11:1 3 AM CHAR HOUSE SUPERVISOR Impressions 03/28/2024 1:02 PM CHAR HOUSE SUPERVISOR IMPRESSION: Negative bilateral screening mammogram. Recommend routine followup. OVERALL FINAL ASSESSMENT: BI-RADS CATEGORY 1 - Negative. DICTATION LOCATION: [facility] Narrative 03/28/2024 1:02 PM CHAR HOUSE SUPERVISOR BILATERAL SCREENING DIGITAL MAMMOGRAMS WITH COMPUTER ASSISTED DIAGNOSIS WITH TOMOGRAPHY DATE: 03/28/2024 11:13 AM HISTORY: Annual screening. COMPARISON: 02/24/2023 and 01/27/2022. TECHNIQUE: A bilateral screening mammogram was performed. Low-dose full-field digital breast tomosynthesis examination was performed with 2D and 3D acquisitions. Examination is read in conjunction with computer aided detection. BREAST COMPOSITION: Scattered fibroglandular densities. FINDINGS: No new masses, suspicious calcifications, or areas of asymmetry or distortion are identified. The images were reviewed using the CAD system. Procedure Note Jacklyn Little MD - 03/28/2024 BILATERAL SCREENING DIGITAL MAMMOGRAMS WITH COMPUTER ASSISTED DIAGNOSIS WITH TOMOGRAPHY DATE: 03/28/2024 11:13 AM HISTORY: Annual screening. COMPARISON: 02/24/2023 and 01/27/2022. TECHNIQUE: A bilateral screening mammogram was performed. Low-dose full-field digital breast tomosynthesis examination was performed with 2D and 3D acquisitions. Examination is read in conjunction with computer aided detection. BREAST COMPOSITION: Scattered fibroglandular densities. FINDINGS: No new masses, suspicious calcifications, or areas of asymmetry or distortion are identified. The images were reviewed using the CAD system. IMPRESSION: Negative bilateral screening mammogram. Recommend routine followup. OVERALL FINAL ASSESSMENT: BI-RADS CATEGORY 1 - Negative. DICTATION LOCATION: [facility] Janet Fernandse MD MAMMO ORDERABLES Final Result * XR DEXA BONE DENSITY AXIAL 1 OR MORE SITES (07/08/2013 10:28 AM CDT) Anatomical Region Laterality Modality Computed Radiogr aphy 07/08/2013 10:2 6 AM CDT Narrative 07/08/2013 11:07 AM CDT Examination: Bone Density Study (DXA) Clinical History: 62 year-old postmenopausal female. Compared to the prior bone density performed 03/03/2011 Findings: Lumbar Spine (L1-L4) T-score -1.6 0.99 g/sq cm Prior: 1.03 g/sq cm -4.4 % change Left femoral neck T-score -1.9 0.77 g/sq cm Prior: 0.80 g/sq cm -3.6 % change Right femoral neck T-score -1.7 0.81 g/sq cm Prior: 0.85 g/sq cm -4.5 % change IMPRESSION Osteopenic bone mineral densities. Comments: None. Detailed report placed in [facility]. Dictated by Dr. Kwesi Mehta MD Dictated from Location 1. Procedure Note Kwesi Mehta MD - 07/08/2013 Examination: Bone Density Study (DXA) Clinical History: 62 year-old postmenopausal female. Compared to the prior bone density performed 03/03/2011 Findings: Lumbar Spine (L1-L4) T-score -1.6 0.99 g/sq cm Prior: 1.03 g/sq cm -4.4 % change Left femoral neck T-score -1.9 0.77 g/sq cm Prior: 0.80 g/sq cm -3.6 % change Right femoral neck T-score -1.7 0.81 g/sq cm Prior: 0.85 g/sq cm -4.5 % change IMPRESSION Osteopenic bone mineral densities. Comments: None. Detailed report placed in [facility]. Dictated by Dr. Kwesi Mehta MD Dictated from Location 1. Janet Fernandes MD DIAGNOSTIC IMAGING ORDERABLES Fi nal Result from Last 3 Months or Most Recently Relevant to Health Maintenance Insurance [employer] PPO MCR RX [employer] RX Member Subscriber Plan / Payer (Ef fective 2022-Present) Name:Rusty Costello Relation to Subscriber:Self Name:Rusty Costello Subscriber ID:Not on file Payer ID:Not on file Group ID:[id number] Type:RX Medicare Part D Address: [place] Advance Directives For more information, please contact: [phone] * Full Code (Latest Code Status on File) Date Activated Date Inactivated Comments 04/13/2022 3:59 PM 04/14/2022 12:03 PM * Full Code Date Activated Date Inactivated Comments 01/16/2017 7:03 AM 01/16/2017 12:14 PM Care Teams Band Attacher Relationship Specialty Start Date End Date Martinez Escobar MD [address] [facility] [address] [place] [address] PCP - General 06/06/08
== END 2025-04-09 10:14 | disposition home or self-care (01) ==
LOC: ANHFOHIMG 10:14
PROVIDERS: PCP Internal Medicine; Visit Provider Internal Medicine
DX: M81.0 Age-related osteoporosis without current pathological fracture (principal); M85.89 Other specified disorders of bone density and structure, multiple sites; Z13.820 Encounter for screening for osteoporosis
CPT/HCPCS: 77080